=== PATIENT | female | born 1965 | race Caucasian/White ===

== ENCOUNTER 2019-10-12 10:45 | Emergency (ER) | payer MEDICAID ==
[~2019-10-12] VITALS: Ht 165.1 cm; Wt 88.0 kg
[2019-10-12] MEDS ORDERED: IBUPROFEN 600MG TABLET PO STA (11:09)
[2019-10-12 13:53] VITALS: BP 128/78
== END 2019-10-12 13:54 | disposition home or self-care (01) ==
LOC: ER 10:45
DX: M25.562 Pain in left knee (principal); M25.511 Pain in right shoulder; E11.9 Type 2 diabetes mellitus without complications; Z98.890 Other specified postprocedural states
CPT/HCPCS: 73564; 73590; 99284

== ENCOUNTER 2020-03-04 19:36 | Emergency (ER) | payer MEDICAID ==
[~2020-03-04] VITALS: Ht 165.1 cm; Wt 84.0 kg
[2020-03-04] MEDS ORDERED: TRAMADOL HCL/ACETAMINOPHEN 37.5/325MG TABLET PO ONE (21:00)
[2020-03-04 21:24] LABS: BASOPHILS % 1.2 % (0.0-2.0); EOSINOPHILS % 1.7 % (0.0-5.0); HEMATOCRIT. 36.9 % (36.0-48.0); LYMPHOCYTES % 34.4 % (20.0-50.0); MEAN CORPUSCULAR HEMOGLOBIN 33.5 pg (28.0-32.0); MEAN CORPUSCULAR VOLUME 95.5 fL (81.0-99.0); MEAN PLATELET VOLUME 8.4 fl (7.4-10.4); MONOCYTES % 8.8 % (2.0-8.0); NEUTROPHILS % 53.9 % (40.0-76.0); PLATELET 141 x1000/uL (130-400); RED BLOOD CELL COUNT 3.87 mill/uL (4.2-5.4); RED CELL DISTRIBUTION WIDTH 12.8 % (11.6-14.6)
[2020-03-04 21:31] LABS: CHLORIDE 108 mEq/L (98-107)
[2020-03-05 00:43] VITALS: BP 133/81
== END 2020-03-05 00:44 | disposition home or self-care (01) ==
LOC: ER 19:36
DX: R07.89 Other chest pain (principal); R51.9 Headache, unspecified; F41.9 Anxiety disorder, unspecified; E11.9 Type 2 diabetes mellitus without complications; M32.9 Systemic lupus erythematosus, unspecified; E03.9 Hypothyroidism, unspecified; Z98.890 Other specified postprocedural states; Z88.8 Allergy status to other drugs, medicaments and biological substances
CPT/HCPCS: 36415; 71045; 80053; 83880; 84484; 85025; 93005; 99285

== ENCOUNTER 2020-07-29 14:01 | Emergency (ER) | payer MEDICAID ==
[~2020-07-29] VITALS: Ht 165.1 cm; Wt 87.0 kg
[2020-07-29 14:05] VITALS: BP 144/98
== END 2020-07-29 17:35 | disposition home or self-care (01) ==
LOC: ER 14:01
DX: R68.84 Jaw pain (principal); E11.9 Type 2 diabetes mellitus without complications; Z88.2 Allergy status to sulfonamides; Z98.890 Other specified postprocedural states; Z86.39 Personal history of other endocrine, nutritional and metabolic disease
CPT/HCPCS: 70360; 99283

== ENCOUNTER 2021-06-10 01:11 | Emergency (ER) | payer MEDICAID ==
[~2021-06-10] VITALS: Ht 165.1 cm; Wt 89.1 kg
[2021-06-10] MEDS ORDERED: LIDOCAINE HCL/PF 1% 10 MG/ML 5ML VIAL INFIL ONE (01:30)
[2021-06-10] MEDS ORDERED: LORAZEPAM 0.5MG TABLET PO ONE (01:30)
[2021-06-10] MEDS ORDERED: BACITRACIN ZINC OINT UDPKT TOP ONE (01:30)
[2021-06-10] MEDS ORDERED: TETANUS, DIPHTHERIA, PERTUSSIS VAC/PF 0.5ML (>10YR OLD) IM ONE ×2 (01:30→03:00)
[2021-06-10] MEDS ORDERED: LORAZEPAM 0.5MG TABLET PO SCH (03:00)
[2021-06-10] MEDS ORDERED: LIDOCAINE HCL 1% 20ML VIAL (Pyxis) INJ INFIL SCH (03:00)
[2021-06-10] MEDS ORDERED: BACITRACIN ZINC OINT UDPKT TOP SCH (03:00)
[2021-06-10 04:34] VITALS: BP 135/82
== END 2021-06-10 04:35 | disposition home or self-care (01) ==
LOC: ER 01:28
DX: S61.216A Laceration without foreign body of right little finger without damage to nail, initial encounter (principal); F41.8 Other specified anxiety disorders; R07.89 Other chest pain; W26.0XXA Contact with knife, initial encounter; Y93.G3 Activity, cooking and baking; Y92.030 Kitchen in apartment as the place of occurrence of the external cause
CPT/HCPCS: 12001; 90715; 93005; 99283; J3490

== ENCOUNTER 2023-05-29 12:28 | Emergency (ER) | payer MEDICAID, OTHER ==
[~2023-05-29] VITALS: Ht 167.6 cm; Wt 87.0 kg
[2023-05-29 12:44] VITALS: O2SAT 100
[2023-05-29] MEDS: KETOROLAC 60MG/2ML VIAL IM ONE (13:26)
[2023-05-29] MEDS: HYDROXYZINE 25MG TABLET PO ONE (13:26)
[2023-05-29] MEDS: METHOCARBAMOL 500MG TABLET PO ONE (13:26)
[2023-05-29] MEDS ORDERED: METH-653 MT (13:49)
[2023-05-29] MEDS ORDERED: HYDR-459 MT (13:49)
[2023-05-29 14:09] VITALS: BP 129/84; PULSE 83; RESP 10; TEMP 97.6
== END 2023-05-29 14:12 | disposition home or self-care (01) ==
LOC: ER 13:11
DX: M25.512 Pain in left shoulder (principal); F41.9 Anxiety disorder, unspecified; E11.9 Type 2 diabetes mellitus without complications; Z98.890 Other specified postprocedural states
CPT/HCPCS: 99283; 73030; 96372; J1885

== ENCOUNTER 2024-12-10 11:00 | Emergency (ER) | payer OTHER ==
[~2024-12-10] VITALS: Ht 165.1 cm; Wt 86.0 kg
[~2024-12-10 11:00] MED LIST: CLON1TAB2 PO; HYDR-459 MT; LEVO50TA8 PO; METH-653 MT
[2024-12-10 11:10] VITALS: O2SAT 98
[2024-12-10 11:26] LABS: BASOPHILS % 0.6 % (0.0-2.0); EOSINOPHILS % 3.1 % (0.0-5.0); HEMATOCRIT. 40.1 % (36.0-48.0); HEMOGLOBIN. 14.1 g/dL (12.0-16.0); LYMPHOCYTES % 29.4 % (20.0-50.0); MEAN PLATELET VOLUME 8.3 fl (7.4-10.4); MONOCYTES % 7.1 % (2.0-8.0); NEUTROPHILS % 59.8 % (40.0-76.0); PLATELET 124 x1000/uL (130-400); RED BLOOD CELL COUNT 4.29 mill/uL (4.2-5.4); RED CELL DISTRIBUTION WIDTH 12.4 % (11.6-14.6)
[2024-12-10 11:42] LABS: CREATININE 0.5 mg/dL (0.6-1.0); UREA NITROGEN BLOOD 6 mg/dL (9-23)
[2024-12-10 12:31] LABS: TROPONIN I HIGH SENSITIVITY 22 ng/L (3.0-34)
[2024-12-10] MEDS ORDERED: NITROGLYCERIN 0.4MG TABLET SL SL ONE (16:00)
[2024-12-10] MEDS ORDERED: ASPIRIN 325MG EC TABLET PO ONE (16:00)
[2024-12-10] MEDS ORDERED: ACETAMINOPHEN 325MG TABLET PO ONE (16:00)
[2024-12-10 16:16] LABS: TROPONIN I HIGH SENSITIVITY 19 ng/L (3.0-34)
[2024-12-10] MEDS ORDERED: MAGNESIUM/ALUMINUM HYDROXIDE/SIMETHICONE 30ML UDC PO PRN (17:15)
[2024-12-10] MEDS ORDERED: ONDANSETRON HCL 4MG/2ML INJ IV PRN (17:15)
[2024-12-10] MEDS ORDERED: CLONIDINE 0.1MG TABLET PO PRN (17:15)
[2024-12-10] MEDS ORDERED: ZOLPIDEM TARTRATE 5MG TABLET PO PRN (17:15)
[2024-12-10] MEDS ORDERED: ENOXAPARIN 40MG/0.4ML SYR SUBCUT SCH (17:15)
[2024-12-10] MEDS ORDERED: HYDROCODONE/ACETAMINOPHEN 5/325MG TABLET PO PRN (17:15)
[2024-12-10] MEDS ORDERED: MORPHINE SULFATE 4 MG/ML INJ (FOR IV/IM USE) IV PRN (17:15)
[2024-12-10] MEDS ORDERED: ACETAMINOPHEN 325MG TABLET PO PRN (17:15)
[2024-12-10 18:41] VITALS: BP 140/79; PULSE 71; RESP 18; TEMP 36.7; O2SAT 99
[2024-12-10] MEDS ORDERED: ENOXAPARIN 30MG/0.3ML SYR SUBCUT SCH (21:00)
[2024-12-11] MEDS ORDERED: PANTOPRAZOLE SODIUM 40 MG/VIAL IV SCH (09:00)
== END 2024-12-10 18:42 | disposition left against medical advice (07) ==
LOC: ER 11:00 → CANBEDREQ 18:33 → ER 18:42
DX: J98.11 Atelectasis (principal); E03.9 Hypothyroidism, unspecified; E11.9 Type 2 diabetes mellitus without complications; Z88.5 Allergy status to narcotic agent
CPT/HCPCS: 80048; 85025; 84484; 36415; 71045; 93005; 99285; Z7610 ×2; A4606